=== PATIENT | male | born 1950 | race Caucasian/White ===

== ENCOUNTER → 2016-06-25 | Outpatient (CLI) | payer OTHER ==
[~2016-06-25] MED LIST: CEPH500C PO; SERT25TA PO; [UNRECOGNIZED DRUG - CODE] PO
[2016-06-25 11:26] LABS: HEMATOCRIT 47.4 % (42-52); MEAN CELL VOLUME 84.6 fL (80-100); MEAN CORPUSCULAR HEMOGLOBIN 29.5 pg (25-34); MEAN CORPUSCULAR HGB CONC 34.8 g/dl (32-36); MEAN PLATELET VOLUME 9.1 fL (7.4-10.4); PLATELET COUNT 228 K/uL (130-400); WHITE BLOOD COUNT 7.07 K/uL (4.8-10.8)
[2016-06-25 11:30] LABS: ESTIMATED AVERAGE GLUCOSE 108 mg/dl; HA1C FLAG Normal (Normal)
[2016-06-25 12:21] LABS: ALT/SGPT 74 U/L (12-78); AST/SGOT 40 U/L (15-37); BLOOD UREA NITROGEN 14 mg/dl (7-18); BUN/CREATININE RATIO 12.4 (10-20); CALCIUM 8.8 mg/dl (8.5-10.1); CARBON DIOXIDE 27 mmol/L (21-32); CHLORIDE 107 mmol/L (98-107); GLUCOSE 114 mg/dl (70-99); HDL CHOLESTEROL 35 mg/dl; POTASSIUM 3.2 mmol/L (3.5-5.1); SODIUM 144 mmol/L (136-145); TRIGLYCERIDES 242 mg/dl (0-150); VERY LOW DENSITY LIPOPROT CALC 48 mg/dl
[2016-06-25 12:30] LABS: ALKALINE PHOSPHATASE 115 U/L (45-117); CHOLESTEROL 242 mg/dl (0-200); CHOLESTEROL/HDL RATIO 6.9; LDL CHOLESTEROL CALCULATED 159 mg/dl; PHOSPHORUS 2.4 mg/dl (2.5-4.9); URIC ACID 5.1 mg/dl (2.6-7.2)
== END | disposition home or self-care (01) ==
LOC: C.LABBC 09:02
PROVIDERS: ATTEND Family Medicine
DX: R73.09 Other abnormal glucose (principal)

== ENCOUNTER → 2016-10-11 | Outpatient (CLI) | payer OTHER ==
[2016-10-11 11:49] LABS: BLOOD UREA NITROGEN 16 mg/dl (7-18); BUN/CREATININE RATIO 13.7 (10-20); CARBON DIOXIDE 27 mmol/L (21-32); CHLORIDE 108 mmol/L (98-107); GLUCOSE 112 mg/dl (70-99); MAGNESIUM 2.4 mg/dl (1.8-2.4); POTASSIUM 3.8 mmol/L (3.5-5.1); SODIUM 143 mmol/L (136-145)
[2016-10-13 10:16] LABS: 18KDIGG BAND NONREACTIVE (NONREACTIVE); 23KDIGG BAND NONREACTIVE (NONREACTIVE); 23KDIGM BAND REACTIVE (NONREACTIVE); 28KDIGG BAND NONREACTIVE (NONREACTIVE); 30KDIGG BAND NONREACTIVE (NONREACTIVE); 39KDIGG BAND NONREACTIVE (NONREACTIVE); 39KDIGM BAND NONREACTIVE (NONREACTIVE); 41KDIGG BAND REACTIVE (NONREACTIVE); 41KDIGM BAND NONREACTIVE (NONREACTIVE); 45KDIGG BAND NONREACTIVE (NONREACTIVE); 58KDIGG BAND NONREACTIVE (NONREACTIVE); 66KDIGG BAND REACTIVE (NONREACTIVE); 93KDIGG BAND NONREACTIVE (NONREACTIVE)
--- NOTE | 2016-10-13 14:00 | CODING QUERY NO DIAGNOSIS ---
TREATMENT RENDERED WITHOUT A DIAGNOSIS To promote full compliance with coding requirements relating to patient care, physician participation is requested in all cases of closing specialist uncertainty. Please assist us with providing a diagnosis/symptom for the test(s) below: A diagnosis/symptom was not documented on your Order. A valid diagnosis/symptom is required to bill all insurances. Please remember that we are unable to code a diagnosis of rule out, probable, possible, questionable, or suspected. DATE OF SERVICE: 10/11/16 Tests that require a diagnosis: * BASIC METABOLIC PROFILE DIAGNOSIS: * LYME WESTERN BLOT DIAGNOSIS: * MAGNESIUM DIAGNOSIS: Provider Signature: Date: Thank you Samantha Wagoner [facility] [employer] Once completed, please kindly fax back to [phone] For questions please call [phone]
== END | disposition home or self-care (01) ==
LOC: C.LABBC 08:41
PROVIDERS: ATTEND Family Medicine
DX: R53.83 Other fatigue (principal)

== ENCOUNTER 2017-01-31 19:33 | Emergency (ER) | payer OTHER ==
[~2017-01-31] VITALS: Ht 172.7 cm; Wt 97.5 kg
[2017-01-31 19:37] VITALS: Ht 172.7 cm; Wt 97.5 kg
[2017-01-31] MEDS ORDERED: ONDANSETRON INJ 2 MG/ML 2 ML VIAL IV STA (19:52)
[2017-01-31 20:09] LABS: BASO % 0.2 %; BASO ABS # 0.02 K/uL (0-0.2); COMPLETE YES; EOS % 1.3 %; HEMATOCRIT 46.9 % (42-52); IG% 0.2 %; LYMPH % 32.3 %; LYMPH ABS # 2.94 K/uL (1.2-3.4); MEAN CELL VOLUME 87.3 fL (80-100); MEAN CORPUSCULAR HEMOGLOBIN 29.8 pg (25-34); MEAN CORPUSCULAR HGB CONC 34.1 g/dl (32-36); MEAN PLATELET VOLUME 8.9 fL (7.4-10.4); MONO % 6.7 %; NEUT % 59.3 %; PLATELET COUNT 238 K/uL (130-400); RED BLOOD COUNT 5.37 M/uL (4.7-6.1); WHITE BLOOD COUNT 9.09 K/uL (4.8-10.8)
[2017-01-31 20:56] LABS: ALKALINE PHOSPHATASE 132 U/L (45-117); ALT/SGPT 44 U/L (12-78); BLOOD UREA NITROGEN 22 mg/dl (7-18); BUN/CREATININE RATIO 15.4 (10-20); CARBON DIOXIDE 25 mmol/L (21-32); CHLORIDE 108 mmol/L (98-107); GLUCOSE 103 mg/dl (70-99); SODIUM 141 mmol/L (136-145)
--- NOTE | 2017-01-31 21:01 | DIAGNOSTIC IMAGING REPORT ---
ABDOMEN 2VIEW W/PA CHEST RTN CLINICAL HISTORY: Abdominal pain COMPARISON STUDY: 11/09/2005 FINDINGS: The erect chest reveals no evidence of free air. There is no evidence of focal pulmonary consolidation.] Erect and supine views of the abdomen reveal no abnormally dilated loops of large or small bowel. There are no transition zone to indicate bowel obstruction. IMPRESSION: No evidence of bowel obstruction. No evidence of free air. Electronically signed by: Kwadwo Duque M.D. 01/31/2017 8:59 PM Dictated Date/Time: 01/31/2017 8:58 PM
[2017-01-31 21:08] LABS: MANUAL MICROSCOPIC REQUIRED? NO; REVIEW REQ? NO; URINE APPEARANCE CLOUDY (CLEAR); URINE BILIRUBIN NEG (NEG); URINE COLOR DK YELLOW; URINE EPITHELIAL CELL AUTO 0-5 /lpf (0-5); URINE NITRITE NEG (NEG); URINE SPECIFIC GRAVITY 1.028 (1.000-1.030); UROBILINOGEN NEG (NEG)
--- NOTE | 2017-01-31 21:52 | EMERGENCY ROOM VISIT NOTE ---
History Report prepared by Solo: Rufus Allen Under the Supervision of: Dr. Shelton Chua M.D. First contact with patient: 19:39 Chief Complaint: NAUSEA Stated Complaint: NAUSEA, STOMACH PROBS Nursing Triage Summary: pt reports I have a hx of IBS and I am not feeling better so I would like checked out " I have a little nausea , and feel bloated , maybe some burning" History of Present Illness The patient is a 66 year old male who presents to the Emergency Room with complaints of intermittent upper abdominal discomfort that started 10 days ago. He rates his pain as a 1/10 in severity and states that the discomfort is in his epigastric region radiating throughout his abdomen. The patient states that eating and at the end of the day when his relaxed is when his symptoms are relieved. He states that his symptoms are worsened with stress. The patient states that ten days ago he started to notice that he had a "full feeling", abdominal bloating, and increased gas. He reports that he has only Pepto Bismol and one antacid for his symptoms. The patient states that he has had loose stools lately, but denies any diarrhea. He states that he is going to visit [facility] soon and is concerned that this discomfort may worsen while he is visiting. The patient denies any history of heart disease. He admits that he has had a history of chronic IBS for a long time, which he admits is worsened with spicy foods. The patient denies any vomiting, black or bloody stools, discolored stools, fever, dysuria, unintentional weight loss, chest pain, shortness of breath, eating anything abnormal, and eating more fatty foods. Source of History: patient Onset: ten days ago Position: abdomen Symptom Intensity: 1/10 Quality: other (bloating) Timing: intermittent Modifying Factors (Worsening): other (stress) Modifying Factors (Relieving): eating, other (relaxation) Associated Symptoms: No fevers, No chest pain, No SOB, No nausea, No vomiting, No abdominal pain, No melena, No hematochezia, No diarrhea, No urinary symptoms Review of Systems See HPI for pertinent positives & negatives. A total of 10 systems reviewed and were otherwise negative. Past Medical & Surgical Medical Problems: (1) Hypertension (2) IBS (irritable bowel syndrome) Surgical Problems: (1) H/O hernia repair Family History FHx: respiratory disease Heart disease Social History Smoking Status: Never Smoker Smokeless Tobacco Use: No Alcohol Use: none Drug Use: none Marital Status: Housing Status: lives with significant other Occupation Status: employed Current/Historical Medications Scheduled Cephalexin Monohydrate (Keflex), 500 MG PO QID Sertraline (Zoloft), 25 MG PO DAILY Miscellaneous Medications Enalapril/Hctz (Vaseretic 5MG/12.5MG *), 1 TAB PO Allergies Coded Allergies: No Known Allergies (Unverified Allergy, Mild, 02/12/08) Physical Exam Vital Signs Date Time Temp Pulse Resp B/P (MAP) Pulse Ox O2 Delivery O2 Flow Rate FiO2 01/31/17 20:20 72 01/31/17 19:37 36.7 85 18 156/86 98 Room Air Physical Exam Constitutional: Vital signs reviewed. Eyes: Pupils are equal round reactive to light. Conjunctiva are noninjected. ENT: Pharynx is clear without erythema or exudate. Mucous membranes are moist. Neck supple without meningeal signs. Respiratory: Clear to auscultation bilaterally. Breath sounds are equal bilaterally. Cardiovascular: Regular rate and rhythm. No rubs or gallops. GI: Soft, nondistended, mild epigastric tenderness. No guarding. No Rivers's sign. Bowel sounds are present. Musculoskeletal: No peripheral edema. No lower extremity tenderness. No CVA tenderness. Integumentary: No cyanosis. Neurological: The patient is awake and alert. No focal deficits. Psychiatric: Normal affect. Medical Decision & Procedures ER Provider Diagnostic Interpretation: X-ray results as stated below per interpretation by me and the radiologist: ABDOMEN 2VIEW W/PA CHEST RTN CLINICAL HISTORY: Abdominal pain COMPARISON STUDY: 11/09/2005 FINDINGS: The erect chest reveals no evidence of free air. There is no evidence of focal pulmonary consolidation.] Erect and supine views of the abdomen reveal no abnormally dilated loops of large or small bowel. There are no transition zone to indicate bowel obstruction. IMPRESSION: No evidence of bowel obstruction. No evidence of free air. Electronically signed by: Kwadwo Duque M.D. 01/31/2017 8:59 PM Dictated Date/Time: 01/31/2017 8:58 PM Laboratory Results 01/31/17 20:00 Red Blood Count 5.37, Mean Corpuscular Volume 87.3, Mean Corpuscular Hemoglobin 29.8, Mean Corpuscular Hemoglobin Concent 34.1, Mean Platelet Volume 8.9, Neutrophils (%) (Auto) 59.3, Lymphocytes (%) (Auto) 32.3, Monocytes (%) (Auto) 6.7, Eosinophils (%) (Auto) 1.3, Basophils (%) (Auto) 0.2, Neutrophils # (Auto) 5.38, Lymphocytes # (Auto) 2.94, Monocytes # (Auto) 0.61, Eosinophils # (Auto) 0.12, Basophils # (Auto) 0.02 01/31/17 20:00 Test 01/31/17 20:00 01/31/17 20:05 White Blood Count 9.09 K/uL (4.8-10.8) Red Blood Count 5.37 M/uL (4.7-6.1) Hemoglobin 16.0 g/dL (14.0-18.0) Hematocrit 46.9 % (42-52) Mean Corpuscular Volume 87.3 fL (80-100) Mean Corpuscular Hemoglobin 29.8 pg (25-34) Mean Corpuscular Hemoglobin Concent 34.1 g/dl (32-36) Platelet Count 238 K/uL (130-400) Mean Platelet Volume 8.9 fL (7.4-10.4) Neutrophils (%) (Auto) 59.3 % Lymphocytes (%) (Auto) 32.3 % Monocytes (%) (Auto) 6.7 % Eosinophils (%) (Auto) 1.3 % Basophils (%) (Auto) 0.2 % Neutrophils # (Auto) 5.38 K/uL (1.4-6.5) Lymphocytes # (Auto) 2.94 K/uL (1.2-3.4) Monocytes # (Auto) 0.61 K/uL (0.11-0.59) Eosinophils # (Auto) 0.12 K/uL (0-0.5) Basophils # (Auto) 0.02 K/uL (0-0.2) RDW Standard Deviation 43.3 fL (36.4-46.3) RDW Coefficient of Variation 13.6 % (11.5-14.5) Immature Granulocyte % (Auto) 0.2 % Immature Granulocyte # (Auto) 0.02 K/uL (0.00-0.02) Anion Gap 8.0 mmol/L (3-11) Est Creatinine Clear Calc Drug Dose 58.8 ml/min Estimated GFR () 60.3 Estimated GFR (Non- 52.0 BUN/Creatinine Ratio 15.4 (10-20) Calcium Level 9.0 mg/dl (8.5-10.1) Total Bilirubin 0.5 mg/dl (0.2-1) Direct Bilirubin mg/dl (0-0.2) Aspartate Amino Transf (AST/SGOT) U/L (15-37) Alanine Aminotransferase (ALT/SGPT) 44 U/L (12-78) Alkaline Phosphatase 132 U/L (45-117) Total Protein 8.0 gm/dl (6.4-8.2) Albumin 3.8 gm/dl (3.4-5.0) Lipase 213 U/L (73-393) Urine Color DK YELLOW Urine Appearance CLOUDY (CLEAR) Urine pH 5.0 (4.5-7.5) Urine Specific [place] 1.028 (1.000-1.030) Urine Protein NEG (NEG) Urine Glucose (UA) NEG (NEG) Urine Ketones TRACE (NEG) Urine Occult Blood 2+ (NEG) Urine Nitrite NEG (NEG) Urine Bilirubin NEG (NEG) Urine Urobilinogen NEG (NEG) Urine Leukocyte Esterase NEG (NEG) Urine WBC (Auto) 1-5 /hpf (0-5) Urine RBC (Auto) 0-4 /hpf (0-4) Urine Hyaline Casts (Auto) 0 /lpf (0-5) Urine Epithelial Cells (Auto) 0-5 /lpf (0-5) Urine Bacteria (Auto) NEG (NEG) Laboratory results as reviewed by me. ECG Indication: abdominal pain Rate (beats per minute): 85 Rhythm: normal sinus Findings: no acute ischemic change, no ectopy Comparison ECG Date: no prior available ED Course 1942: The patient was evaluated in room C04. A complete history and physical exam was performed. 1951: Zofran Injection 4 mg IV. 2133: Upon reevaluation, the patient appeared to have improvement of his symptoms. I discussed tonight's findings with the patient. He verbalized agreement of the treatment plan. The patient was discharged home. Medical Decision This is a 66-year-old male who presents with abdominal pain. Differential diagnosis includes peptic ulcer disease, gastritis, pancreatitis, gallbladder disease, irritable bowel syndrome, cardiac. I did perform a limited focused review of portions of the patient's old chart on the electronic medical record. The patient has had no recent pertinent visits to this hospital. I did evaluate the patient as noted above. The patient has a history of irritable bowel syndrome. He has been having some abdominal discomfort the past 10 days. He describes it as epigastric and better with food. He also states is worse when he is stressed and better when he is relaxed. He presents today because he is going on a trip to [facility] and wanted to be checked out. On exam he has no significant tenderness other than some mild epigastric tenderness. IV access was established. I did order and personally review the patient's 12-lead EKG and urinalysis as described above. I did order and review the patient's blood work as noted in the electronic medical record. LFTs are unremarkable. Lipase is negative. His white blood cell count is not elevated. I did discuss the test results with the patient. I did recommend close follow up with his doctor. He was advised to try a course of outpatient Pepcid or Zantac. He was given return instructions as outlined below. Medication Reconcilliation Current Medication List: was personally reviewed by me Blood Pressure Screening Patient's blood pressure: Elevated blood pressure Blood pressure disposition: Referred to PCP Impression Primary Impression: Epigastric abdominal pain Scribe Attestation The scribe's documentation has been prepared under my direct and personally reviewed by me in its entirety. I confirm that the note above accurately reflects all work, treatment, procedures, and medical decision making performed by me. Departure Information Dispostion Home / Self-Care Referrals Kai William M.D. (PCP) Forms HOME CARE DOCUMENTATION FORM, IMPORTANT VISIT INFORMATION Patient Instructions ED Abdominal Pain Unkn Cause Male, My [facility] Additional Instructions You have been examined and treated today on an emergency basis only. This is not a substitute for, or an effort to provide, complete comprehensive medical care. It is impossible to recognize and treat all injuries or illnesses in a single emergency department visit. It is therefore important that you follow up closely with your physician. Call as soon as possible for an appointment. Return for worsening symptoms or if you develop fever, vomiting, black or tarry stools, blood in your stools, urinary symptoms or any other concerning symptoms.
[2017-01-31 22:13] VITALS: BP 121/73; PULSE 75; TEMP 36.7; O2SAT 98
== END 2017-01-31 22:00 | disposition home or self-care (01) ==
LOC: C.EDB 19:34 → C.EDC 22:00
DX: R10.13 Epigastric pain (principal); I10 Essential (primary) hypertension; K58.9 Irritable bowel syndrome, unspecified; Z79.899 Other long term (current) drug therapy; Z82.49 Family history of ischemic heart disease and other diseases of the circulatory system

== ENCOUNTER → 2017-06-24 | Outpatient (CLI) | payer OTHER ==
[2017-06-24 13:51] LABS: BASO % 0.3 %; BASO ABS # 0.02 K/uL (0-0.2); EOS % 1.6 %; HEMATOCRIT 45.9 % (42-52); HEMOGLOBIN 15.8 g/dL (14.0-18.0); IG# 0.02 K/uL (0.00-0.02); LYMPH % 28.3 %; LYMPH ABS # 1.72 K/uL (1.2-3.4); MEAN CELL VOLUME 86.6 fL (80-100); MEAN CORPUSCULAR HEMOGLOBIN 29.8 pg (25-34); MEAN CORPUSCULAR HGB CONC 34.4 g/dl (32-36); MEAN PLATELET VOLUME 9.4 fL (7.4-10.4); MONO % 6.9 %; MONO ABS # 0.42 K/uL (0.11-0.59); NEUT % 62.6 %; PLATELET COUNT 223 K/uL (130-400); RED CELL DISTRIBUTION WIDTH CV 13.8 % (11.5-14.5); RED CELL DISTRIBUTION WIDTH SD 43.3 fL (36.4-46.3); WHITE BLOOD COUNT 6.08 K/uL (4.8-10.8)
[2017-06-24 15:25] LABS: ALBUMIN 3.8 gm/dl (3.4-5.0); ALT/SGPT 50 U/L (12-78); AST/SGOT 27 U/L (15-37); BLOOD UREA NITROGEN 18 mg/dl (7-18); CALCIUM 8.9 mg/dl (8.5-10.1); CARBON DIOXIDE 29 mmol/L (21-32); CHOLESTEROL 215 mg/dl (0-200); CREATININE 1.07 mg/dl (0.60-1.40); GLUCOSE 107 mg/dl (70-99); POTASSIUM 3.5 mmol/L (3.5-5.1); SODIUM 140 mmol/L (136-145); TRANSFERRIN 282 mg/dl (200-360); URIC ACID 6.6 mg/dl (2.6-7.2)
[2017-06-24 15:33] LABS: ALKALINE PHOSPHATASE 134 U/L (45-117); LDL CHOLESTEROL CALCULATED 136 mg/dl; TOTAL PROTEIN 8.1 gm/dl (6.4-8.2)
[2017-06-25 07:57] LABS: HEMOGLOBIN A1C 5.4 % (4.5-5.6)
== END | disposition home or self-care (01) ==
LOC: C.LABBC 10:16
PROVIDERS: ATTEND Family Medicine
DX: R73.09 Other abnormal glucose (principal); E55.9 Vitamin D deficiency, unspecified; D51.9 Vitamin B12 deficiency anemia, unspecified; E78.9 Disorder of lipoprotein metabolism, unspecified; R53.83 Other fatigue

== ENCOUNTER 2021-04-16 08:52 | Inpatient (IN) ==
[2021-04-16] MEDS ORDERED: dilTIAZem HCl 5 MG/ML 5 ML VIAL IV STA (09:23)
[2021-04-16] MEDS ORDERED: STAT IV Infusion **Titration per Protocol STA (09:23)
[2021-04-16] MEDS ORDERED: Heparin IV Adult Wt-Based Standard WITH Bolus Protocol STA (09:23)
[2021-04-16] MEDS ORDERED: HEPARIN SOD (PORCINE) 1000 UNIT/ML IV ONE (09:39)
[2021-04-16 09:42] LABS: Basophils # (auto) 0.02 K/uL (0-0.2); Basophils % (auto) 0.2 %; Eosinophils # (auto) 0.06 K/uL (0-0.5); Eosinophils % (auto) 0.5 %; Hematocrit (blood only) 49.9 % (42-52); Hemoglobin 17.1 g/dL (14.0-18.0); Immature Granulocytes # (auto) 0.05 K/uL (0.00-0.02); Immature Granulocytes % (auto) 0.4 %; Lymphocytes # (auto) 2.93 K/uL (1.2-3.4); Lymphocytes % (auto) 24.3 %; Mean Corpuscular Hemoglobin 30.5 pg (25-34); Mean Corpuscular Hgb Conc 34.3 g/dL (32-36); Mean Corpuscular Volume 89.1 fL (80-100); Mean Platelet Volume 8.9 fL (7.4-10.4); Monocytes # (auto) 0.91 K/uL (0.11-0.59); Monocytes % (auto) 7.5 %; Neutrophils % (auto) 67.1 %; Platelet Count 270 K/uL (130-400); RDW Coefficient of Variation 13.8 % (11.5-14.5); RDW Standard Deviation 44.8 fL (36.4-46.3); White Blood Count 12.07 K/uL (4.8-10.8)
[2021-04-16] MEDS: dilTIAZem HCL 125 MG in DEXTROSE 5% 100 ML IV SCH (09:53)
--- NOTE | 2021-04-16 09:53 | Emergency Department Note ---
Impression & Plan Atrial fibrillation with rapid ventricular response ED Provider Note INFORMANT: Patient ED PROVIDER(S): Cm De Leon MD CHIEF COMPLAINT: Palpitations PLAN: Disposition: Admitted Condition: Good Outpatient prescription management: none Referral: None MEDICAL DECISION MAKING: Patient presented because of palpitations. His ECG showed atrial fibrillation with rapid ventricular response. This is new onset for the patient. He believes it started sometime yesterday evening. He notes minimal symptoms of just the palpitations and when he took his heart rate it was fast. He has no history of the same. He had an IV established. Blood work was obtained. Cardizem bolus and drip was initiated. Patient was prepped for heparin drip. Chest x-ray was unremarkable.[] Triage Nursing notes reviewed and agree them. Vital Signs: reviewed and remarkable for tachycardia and hypertension Differential diagnosis: Premature contractions, electrolyte abnormality, cardiac dysrhythmia, thyroid dysfunction, pulmonary embolism, infection, gastrointestinal, as well as other pathologies. Diagnostics interpreted by me: ECG: Twelve-lead ECG reveals atrial fibrillation with rapid ventricular response. Inferior ST depression mildly. No ST elevation. No PVCs. Cardiac Monitoring: Cardiac monitoring ordered by me: The patient was placed on continuous cardiac monitoring and observed. It revealed atrial fibrillation with rapid ventricular response at 155 bpm. Imaging studies: Chest x-ray. Findings: A chest x-ray was performed and revealed no pneumothorax, effusion, infiltrate, pulmonary edema, free air under the diaphragm, or wide mediastinum. Impression: No acute disease. HPI: The patient is a 70 year old male who presents to the Emergency Room with complaints of palpitations. This started last night and is persistent. The patient also notes the following associated symptoms, none. The patient has taken no medication for relieving factors. Current pain is rated as 0/10. Patient has no cardiac history. Pt denies LOC, headache, fevers, chills, diaphoresis, visual changes, neck pain, chest pain, breathing difficulties, nausea, vomiting, abdominal pain, back pain, melena, hematochezia, urinary symptoms, numbness, weakness, lymphadenopathy, rash, or other complaints. ROS: See above HPI for pertinent positives & negatives. A total of 10 systems reviewed and were otherwise negative. PAST MEDICAL HISTORY:See Below , hypertension PAST SURGICAL HISTORY:See Below, FAMILY HISTORY:See Below SOCIAL HISTORY:See Below, non-smoker HOME MEDICATIONS:See Below ALLERGIES:See Below VITALS:See Below PHYSICAL EXAMINATION: GENERAL: Awake, alert, well-appearing, in no distress HENT: Normocephalic, atraumatic. Oropharynx unremarkable. EYES: Normal conjunctiva. Sclera non-icteric. NECK: Inspection normal. Non-tender. Supple. No nuchal rigidity. FROM. No masses. RESPIRATORY: Clear to auscultation. No wheezes. No rales. Normal respiratory effort. CARDIAC: Tachycardic rate. Irregular rhythm. No murmurs. No rubs. Extremities warm and well perfused. Pulses equal. No JVD. GI: Soft, non-distended. No tenderness to palpation. No rebound or guarding. No masses. RECTAL: Deferred. MUSCULOSKELETAL: Atraumatic. Chest examination reveals no tenderness. The back is symmetrical on inspection without obvious abnormality. There is no CVA ten derness to palpation. No joint edema. LOWER EXTREMITIES: Calves are equal size bilaterally and non-tender. No edema. No discoloration. NEURO: Normal sensorium. No sensory or motor deficits noted. SKIN: No rash or jaundice noted. CRITICAL CARE: I have personally spent greater than 35 minutes of critical care time in the direct management of this patient. This includes bedside care, interpretation of diagnostic studies, and testing, discussion with consultants, patient, and other required patient management activities. These minutes are in excess of all separately billable procedures. Cm De Leon MD Past Med/Surg History Medical History (Updated 04/16/21 @ 13:13 by Cm De Leon MD) Hypertension Social History Smoking Status: Never smoker Feels Safe at Home: Yes Allergies Allergies Allergy/AdvReac Type Severity Reaction Status Date / Time No Known Allergies Allergy Mild Verified 04/08/21 10:43 Home Meds Home Medications Medication Instructions Recorded Confirmed amlodipine 5 mg tablet 5 mg PO DAILY 04/08/21 04/16/21 lisinopril 20 mg tablet 20 mg PO DAILY 04/08/21 04/16/21 L.rhamn 1 cap PO DAILY PRN 04/16/21 04/16/21 A-191-L.acid-B.breve-B.longum 20 billion cell sprinkle capsule (Probiotic) cholecalciferol (vitamin D3) 10 10 mcg PO DAILY 04/16/21 04/16/21 mcg (400 unit) tablet (Vitamin D3) wm-4-vlt-epa-fish oil-vit D3 300 1 cap PO DAILY 04/16/21 04/16/21 mg-1,000 mg-1,000 unit capsule (Fish Oil-Vit D3) sertraline 50 mg tablet 50 mg PO HS PRN 04/16/21 04/16/21 tumeric 100 mg-liz 150 mg-olive 1 cap PO DAILY 04/16/21 04/16/21 50 mg-oreg 150 mg-caprylate capsule Results & Data (ED) Vital Signs Vital Signs - 24 hr 04/16/21 09:12 04/16/21 09:13 04/16/21 09:20 Temperature 37.1 C Temperature Source Oral Pulse Rate 135 H 155 H 149 H Pulse Rate from SpO2 Sensor 127 H 154 H Pulse Rhythm Irregular Pulse Strength Normal Respiratory Rate 22 20 18 Respiratory Effort / Characteristics Non-Labored Respiratory Depth Normal Blood Pressure 166/100 H Blood Pressure Mean 122 Blood Pressure Position Sitting Pulse Oximetry 97 98 97 Oxygen Delivery Method Room Air Sepsis Recent Fever Within 48 Hours No Sepsis New/Unexplained Change in Mental Status No Sepsis Action Taken by Nursing No Action Required 04/16/21 09:30 04/16/21 09:40 04/16/21 09:50 Temperature Temperature Source Pulse Rate 134 H 126 H 122 H Pulse Rate from SpO2 Sensor 121 H 124 H 118 H Pulse Rhythm Pulse Strength Respiratory Rate 19 27 H 22 Respiratory Effort / Characteristics Respiratory Depth Blood Pressure Blood Pressure Mean Blood Pressure Position Pulse Oximetry 98 95 95 Oxygen Delivery Method Sepsis Recent Fever Within 48 Hours Sepsis New/Unexplained Change in Mental Status Sepsis Action Taken by Nursing 04/16/21 10:00 04/16/21 10:10 04/16/21 10:20 Temperature Temperature Source Pulse Rate 120 H 104 H 133 H Pulse Rate from SpO2 Sensor 119 H 103 H 135 H Pulse Rhythm Pulse Strength Respiratory Rate 12 11 L 19 Respiratory Effort / Characteristics Respiratory Depth Blood Pressure Blood Pressure Mean Blood Pressure Position Pulse Oximetry 93 93 94 Oxygen Delivery Method Sepsis Recent Fever Within 48 Hours Sepsis New/Unexplained Change in Mental Status Sepsis Action Taken by Nursing 04/16/21 10:30 04/16/21 10:40 04/16/21 10:50 Temperature Temperature Source Pulse Rate 114 H 105 H 108 H Pulse Rate from SpO2 Sensor 109 H 106 H 108 H Pulse Rhythm Pulse Strength Respiratory Rate 15 10 L 12 Respiratory Effort / Characteristics Respiratory Depth Blood Pressure 150/94 H Blood Pressure Mean 112 Blood Pressure Position Pulse Oximetry 94 92 93 Oxygen Delivery Method Sepsis Recent Fever Within 48 Hours Sepsis New/Unexplained Change in Mental Status Sepsis Action Taken by Nursing 04/16/21 11:00 04/16/21 11:10 04/16/21 11:20 Temperature Temperature Source Pulse Rate 108 H 114 H 117 H Pulse Rate from SpO2 Sensor 111 H 101 H Pulse Rhythm Pulse Strength Respiratory Rate 21 14 11 L Respiratory Effort / Characteristics Respiratory Depth Blood Pressure Blood Pressure Mean Blood Pressure Position Pulse Oximetry 93 94 Oxygen Delivery Method Sepsis Recent Fever Within 48 Hours Sepsis New/Unexplained Change in Mental Status Sepsis Action Taken by Nursing 04/16/21 11:30 04/16/21 11:40 04/16/21 11:50 Temperature Temperature Source Pulse Rate 115 H 116 H 118 H Pulse Rate from SpO2 Sensor 114 H 88 107 H Pulse Rhythm Pulse Strength Respiratory Rate 12 15 32 H Respiratory Effort / Characteristics Respiratory Depth Blood Pressure 124/91 Blood Pressure Mean 102 Blood Pressure Position Pulse Oximetry 95 94 96 Oxygen Delivery Method Sepsis Recent Fever Within 48 Hours Sepsis New/Unexplained Change in Mental Status Sepsis Action Taken by Nursing 04/16/21 12:00 04/16/21 12:10 Temperature Temperature Source Pulse Rate 104 H 109 H Pulse Rate from SpO2 Sensor 100 H 109 H Pulse Rhythm Pulse Strength Respiratory Rate 29 H 11 L Respiratory Effort / Characteristics Respiratory Depth Blood Pressure Blood Pressure Mean Blood Pressure Position Pulse Oximetry 96 93 Oxygen Delivery Method Sepsis Recent Fever Within 48 Hours Sepsis New/Unexplained Change in Mental Status Sepsis Action Taken by Nursing Laboratory Data Result diagrams: 04/16/21 09:18 04/16/21 09:18 Lab Results 04/16/21 04/16/21 04/16/21 Range/Units 09:18 09:18 09:18 WBC 12.07 H (4.8-10.8) K/uL RBC 5.60 (4.7-6.1) M/uL Hgb 17.1 (14.0-18.0) g/dL Hct 49.9 (42-52) % MCV 89.1 (80-100) fL MCH 30.5 (25-34) pg MCHC 34.3 (32-36) g/dL RDW Std Deviation 44.8 (36.4-46.3) fL RDW Coeff of Melvin 13.8 (11.5-14.5) % Plt Count 270 (130-400) K/uL MPV 8.9 (7.4-10.4) fL Immature Gran % (Auto) 0.4 % Neut % (Auto) 67.1 % Lymph % (Auto) 24.3 % Mitchell % (Auto) 7.5 % Eos % (Auto) 0.5 % Baso % (Auto) 0.2 % Neut # (Auto) 8.10 H (1.4-6.5) K/uL Lymph # (Auto) 2.93 (1.2-3.4) K/uL Mitchell # (Auto) 0.91 H (0.11-0.59) K/uL Eos # (Auto) 0.06 (0-0.5) K/uL Baso # (Auto) 0.02 (0-0.2) K/uL Immature Gran # (Auto) 0.05 H (0.00-0.02) K/uL PT 10.0 (9.0-12.0) Seconds INR 1.0 (0.9-1.1) APTT 27.3 (21.0-31.0) Seconds PTT Ratio 1.0 Sodium 140 (136-145) mmol/L Potassium 2.9 L (3.5-5.1) mmol/L Chloride 106 (98-107) mmol/L Carbon Dioxide 25 (21-32) mmol/L Anion Gap 9.0 (3-11) BUN 21 H (7-18) mg/dl Creatinine 1.10 (0.6-1.4) mg/dl Est Cr Clr Drug Dosing 69.8 ml/min Est GFR ( Amer) 78.4 ml/min Est GFR (Non-Af Amer) 67.7 ml/min BUN/Creatinine Ratio 19.1 (10-20) Glucose 131 H (70-99) mg/dl Calcium 9.2 (8.5-10.1) mg/dl Magnesium 2.3 (1.8-2.4) mg/dl Total Bilirubin 0.7 (0.2-1) mg/dl AST 35 (15-37) U/L ALT 63 (12-78) U/L Alkaline Phosphatase 91 (45-117) U/L Troponin I < 0.015 (0-0.045) ng/ml Total Protein 7.9 (6.4-8.2) gm/dl Albumin 3.5 (3.4-5.0) gm/dl Globulin 4.4 H (2.5-4.0) gm/dl Albumin/Globulin Ratio 0.8 L (0.9-2) TSH 2.550 (0.300-4.500) uIu/ml COVID-19 Eval Order SARS-CoV-2 (PCR) (Negative) 04/16/21 04/16/21 Range/Units 09:25 09:25 WBC (4.8-10.8) K/uL RBC (4.7-6.1) M/uL Hgb (14.0-18.0) g/dL Hct (42-52) % MCV (80-100) fL MCH (25-34) pg MCHC (32-36) g/dL RDW Std Deviation (36.4-46.3) fL RDW Coeff of Melvin (11.5-14.5) % Plt Count (130-400) K/uL MPV (7.4-10.4) fL Immature Gran % (Auto) % Neut % (Auto) % Lymph % (Auto) % Mitchell % (Auto) % Eos % (Auto) % Baso % (Auto) % Neut # (Auto) (1.4-6.5) K/uL Lymph # (Auto) (1.2-3.4) K/uL Mitchell # (Auto) (0.11-0.59) K/uL Eos # (Auto) (0-0.5) K/uL Baso # (Auto) (0-0.2) K/uL Immature Gran # (Auto) (0.00-0.02) K/uL PT (9.0-12.0) Seconds INR (0.9-1.1) APTT (21.0-31.0) Seconds PTT Ratio Sodium (136-145) mmol/L Potassium (3.5-5.1) mmol/L Chloride (98-107) mmol/L Carbon Dioxide (21-32) mmol/L Anion Gap (3-11) BUN (7-18) mg/dl Creatinine (0.6-1.4) mg/dl Est Cr Clr Drug Dosing ml/min Est GFR ( Amer) ml/min Est GFR (Non-Af Amer) ml/min BUN/Creatinine Ratio (10-20) Glucose (70-99) mg/dl Calcium (8.5-10.1) mg/dl Magnesium (1.8-2.4) mg/dl Total Bilirubin (0.2-1) mg/dl AST (15-37) U/L ALT (12-78) U/L Alkaline Phosphatase (45-117) U/L Troponin I (0-0.045) ng/ml Total Protein (6.4-8.2) gm/dl Albumin (3.4-5.0) gm/dl Globulin (2.5-4.0) gm/dl Albumin/Globulin Ratio (0.9-2) TSH (0.300-4.500) uIu/ml COVID-19 Eval Order Covid19 at [facility] SARS-CoV-2 (PCR) NEGATIVE (Negative) Administered Medications Diltiazem HCl 125 mg/ Dextrose 125 mls @ 5 mls/hr IV .Q24H [facility]; Protocol Stop: 05/16/21 09:29 Last Admin: 04/16/21 09:53 Dose: 5 mg/hr, 5 mls/hr Documented by: [id number] Cosigned by: [id number] Heparin Sodium/Dextrose (Heparin Sodium/Dextrose) 25,000 units in 500 mls @ 28 mls/hr IV .[id number] [facility]; Protocol Stop: 05/16/21 09:44 Last Admin: 04/16/21 11:10 Dose: 1,400 units/hr, 28 mls/hr Documented by: [id number] Cosigned by: [id number] Discontinued Medications Diltiazem HCl (Diltiazem Hcl 5 Mg/Ml 5 Ml Vial) 10 mg IV NOW STA Stop: 04/16/21 09:24 Last Admin: 04/16/21 09:39 Dose: 10 mg Documented by: [id number] Cosigned by: [id number] Heparin Sodium (Porcine) (Heparin Sod (Porcine) 1000 Unit/Ml) 1 units IV NOW ONE Stop: 04/16/21 09:40 Last Admin: 04/16/21 11:10 Dose: 5,000 units Documented by: [id number] Cosigned by: [id number] Heparin Sodium/Dextrose (Heparin Iv Adult Wt-Based Standard With Bolus Protocol) 1 ea N/A NOW STA; Protocol Stop: 04/16/21 09:24 Last Admin: 04/16/21 11:12 Dose: Not Given Documented by: [id number] Potassium Chloride (K Ankur / Wtr) 10 meq in 100 mls @ 100 mls/hr IV Q1H KRISTA Stop: 04/16/21 12:14 Last Admin: 04/16/21 12:09 Dose: 100 mls/hr Documented by: [id number] Potassium Chloride (Potassium Chloride Crtab 20 Meq Tabcr) 40 meq PO NOW STA Stop: 04/16/21 10:16 Last Admin: 04/16/21 11:13 Dose: 40 meq Documented by: [id number] Discharge Plan Visit Data Chief Complaint: Cardiac Assessment Stated Complaint: IRREGULAR HEART BEAT ED Provider: Cm De Leon Discharge Problem: Atrial fibrillation with rapid ventricular response Forms Stand Alone Forms: [employer] Prescriptions Prescriptions: No Action lisinopril 20 mg tablet 20 mg PO DAILY RF: 0 amlodipine 5 mg tablet 5 mg PO DAILY RF: 0 sertraline 50 mg tablet 50 mg PO HS PRN (Reason: Pain) RF: 0 cholecalciferol (vitamin D3) [Vitamin D3] 10 mcg (400 unit) Tablet 10 mcg PO DAILY RF: 0 ta-3-qzr-epa-fish oil-vit D3 [Fish Oil-Vit D3] 300-1,000-1,000 mg-mg-unit Capsule 1 cap PO DAILY RF: 0 Probiotic 20 billion cell Capsule, Sprinkle 1 cap PO DAILY PRN (Reason: Digestion) RF: 0 tikhcne-pcmw-tfzga-oreg-capryl 100 mg-150 mg- 50 mg-150 mg Capsule 1 cap PO DAILY RF: 0 Referrals Referrals: Kai William MD [Primary Care Provider] -
[2021-04-16 10:06] LABS: Alanine Aminotransferase 63 U/L (12-78); Albumin Level 3.5 gm/dl (3.4-5.0); Aspartate Aminotransferase 35 U/L (15-37); BUN Creatinine Ratio 19.1 (10-20); Blood Urea Nitrogen 21 mg/dl (7-18); Calcium 9.2 mg/dl (8.5-10.1); Carbon Dioxide 25 mmol/L (21-32); Chloride 106 mmol/L (98-107); Creatinine Clr Calc Pharmacy 69.8 ml/min; Est GFR (African American) 78.4 ml/min; Est GFR (Non-African American) 67.7 ml/min; Glucose 131 mg/dl (70-99); Magnesium 2.3 mg/dl (1.8-2.4); Potassium 2.9 mmol/L (3.5-5.1); Sodium 140 mmol/L (136-145)
[2021-04-16] MEDS ORDERED: POTASSIUM CHLORIDE CRTAB 20 MEQ TABCR PO STA (10:15)
[2021-04-16] MEDS ORDERED: Heparin IV Adult Wt-Based Standard WITH Bolus Protocol IV SCH (10:15)
[2021-04-16 10:18] LABS: Albumin Globulin Ratio 0.8 (0.9-2); Alkaline Phosphatase 91 U/L (45-117); Bilirubin,Total 0.7 mg/dl (0.2-1); Globulin 4.4 gm/dl (2.5-4.0); Total Protein 7.9 gm/dl (6.4-8.2); Troponin I < 0.015 ng/ml (0-0.045)
[2021-04-16 10:42] LABS: Partial Thromboplastin Time 27.3 Seconds (21.0-31.0)
[2021-04-16] MEDS: HEPARIN SODIUM/DEXTROSE 25,000 UNITS/500 ML BAG IV SCH (11:10)
[2021-04-16] MEDS: POTASSIUM CHLORIDE / WTR 10 MEQ/100 ML PLCT IV SCH ×2 (12:09→13:42)
--- NOTE | 2021-04-16 13:38 | History & Physical Report ---
Date of Service April 16, 2021 Assessment & Plan (1) Atrial fibrillation with rapid ventricular response: Plan: Raj is a 70yo M who presents with new afib with RVR New Afib with RVR - Continue cardizem gtt - Continue heparin gtt - Pt a DOAC candidate - [id number] 2 Patient with history of atrial arrhythmia previously, reviewed past report appears to be atrial ectopy not A. fib Discussed risk/benefits of rate control and anticoagulation versus rhythm conversion for 1st episode of A. fib likely provoked by hypokalemia. Cardiology consulted, patient known in the past to Dr. Maldonado per patient TTE pending (2) Hypertension: Plan: Continue amlodipine, lisinopril (3) IBS (irritable bowel syndrome): Plan: No acute management indicated (4) Greater trochanteric bursitis of both hips: Plan: No acute management indicated (5) Hypokalemia: Plan: 20 M EQ repletion ordered in ER Magnesium normal Additional repletion ordered BMP in 4 h, and a.m. Plan: DVT prophylaxis: On heparin GTT Diet: Heart healthy Disposition: PCU while on diltiazem drip CODE STATUS: Full code History of Present Illness Primary Care Provider: Kai William MD Raj reports in the past he has had 'minor blip' with rapid heartbeat and irregular pulse. Saw Dr. Maldonado in the past and gave him a heart monitor at the time several years ago, but rhythm spontaneously went back to normal. This episode started last evening 630 and felt his pulse 'weird and irregular.' Did not have palpitations. No sweating, no chest pain, no shortness of breath, no diaphoresis. No fevers, chills, syncope, presyncope. Was anxious about it decided to get evaluated in the morning as he was worrying about. Denies other cardiac hx, no hx of heart attacks. Has seen Dr. Maldonado in the past, would like to be seen by him again if possible. No prior episodes, records reviewed of prior appears has had atrial ectopy without A. fib. [id number] 2. No falls, history of bleeding diathesis. Medical History: Reviewed Medications: Reviewed. Took medicines his AM. Surgical History: Reviewed Allergies: Reviewed. NKDA Social History: No tobacco product product use, rare social alcohol, no recreational drug use Code Status:Full Code Allergies Allergy/AdvReac Type Severity Reaction Status Date / Time No Known Allergies Allergy Mild Verified 04/08/21 10:43 Home Medications Medication Instructions Recorded Confirmed Type amlodipine 5 mg tablet 5 mg PO DAILY 04/08/21 04/16/21 History lisinopril 20 mg tablet 20 mg PO DAILY 04/08/21 04/16/21 History L.rhamn 1 cap PO DAILY PRN 04/16/21 04/16/21 History A-191-L.acid-B.breve-B.longum 20 billion cell sprinkle capsule (Probiotic) cholecalciferol (vitamin D3) 10 10 mcg PO DAILY 04/16/21 04/16/21 History mcg (400 unit) tablet (Vitamin D3) lc-1-ahb-epa-fish oil-vit D3 300 1 cap PO DAILY 04/16/21 04/16/21 History mg-1,000 mg-1,000 unit capsule (Fish Oil-Vit D3) sertraline 50 mg tablet 50 mg PO HS PRN 04/16/21 04/16/21 History tumeric 100 mg-liz 150 mg-olive 1 cap PO DAILY 04/16/21 04/16/21 History 50 mg-oreg 150 mg-caprylate capsule Past Med/Surg History Medical History Hypertension Social History Smoking Status: Never smoker Feels Safe at Home: Yes Review of Systems Review of Systems: Constitutional: Denies fever, chills, malaise, weight change Eyes: Denies double vision, vision change, eye pain ENT: Denies ear pain, sore throat, sinus pain Cardiovascular: Denies Chest pain, chest pressure, palpitations, extremity swelling Respiratory: Denies shortness of breath, cough, sputum production, difficulty breathing Gastrointestinal: Denies abdominal pain, nausea, vomiting, constipation, diarrhea Genitourinary: Denies pain with urination, urinary urgency, urinary frequency Musculoskeletal: Endorses past hip bursitis and chronic knee arthritis, some neck strain but acute pain/change. Integumentary:Denies rash, lesions, bruising Neurological: Denies headache, numbness, tingling, focal weakness Physical Exam Physical Exam: General: A&Ox3. NAD. Cooperative. HEENT: Atraumatic, normocephalic. Pulm: CTAB A&P. -wheezes, -rales, -rhonchi. Symmetrical chest rise. No increase work of breathing. No respiratory distress. Cardiac: Irregularly irregular. Radial pulses intact and symmetrical. Abdominal: Nontender, nondistended, soft. BS present. CRANIAL NERVES: II: Pupils equal and reactive, no relative afferent pupillary defect, no VF cuts III, IV, : EOM intact, no gaze preference or deviation, no nystagmus. V: normal sensation in V1, V2, and V3 segments bilaterally VII: no asymmetry, no nasolabial fold flattening VIII: normal hearing to speech IX, X: normal palatal elevation, no uvular deviation XI: 5/5 head turn and 5/5 shoulder shrug bilaterally XII: midline tongue protrusion MOTOR: RUE: 5/5 talent development consultant strength, finger flexion/extension, interosseus LUE: 5/5 talent development consultant strength, finger flexion/extension, interosseus RLE: 5/5 to, ankle dorsiflexion/plantarflexion LLE: 5/5 to ankle dorsiflexion/plantarflexion Results & Data Results & Data ([facility]) Vital Signs (Past 12 Hours) Vital Signs Temp Pulse Resp BP Pulse Ox 04/16/21 12:10 109 H 11 L 93 04/16/21 12:00 104 H 29 H 96 04/16/21 11:50 118 H 32 H 96 04/16/21 11:40 116 H 15 124/91 94 04/16/21 11:30 115 H 12 95 04/16/21 11:20 117 H 11 L 94 04/16/21 11:10 114 H 14 93 04/16/21 11:00 108 H 21 04/16/21 10:50 108 H 12 150/94 H 93 04/16/21 10:40 105 H 10 L 92 04/16/21 10:30 114 H 15 94 04/16/21 10:20 133 H 19 94 04/16/21 10:10 104 H 11 L 93 04/16/21 10:00 120 H 12 93 04/16/21 09:50 122 H 22 95 04/16/21 09:40 126 H 27 H 95 04/16/21 09:30 134 H 19 98 04/16/21 09:20 149 H 18 97 04/16/21 09:13 37.1 C 155 H 20 166/100 H 98 04/16/21 09:12 135 H 22 97 PG Care Time/CCT Total # of Minutes Spent Total Time Spent with Patient: Total time spent is greater than 50% in coordination of care (as documented) at patient's floor/unit and/or counseling patient: Coding Level of Care Code 41157 Initial Inpt Care Lvl 3 Diagnoses Atrial fibrillation with rapid ventricular response I48.91 Hypertension I10 IBS (irritable bowel syndrome) K58.9 Greater trochanteric bursitis of both hips M70.61; M70.62 Hypokalemia E87.6
[2021-04-16] MEDS ORDERED: SERTRALINE HCL 50 MG TABLET PO PRN (15:56)
[2021-04-16 17:50] LABS: Partial Thromboplastin Ratio 2.2
[2021-04-16 17:51] LABS: Partial Thromboplastin Time 59.1 Seconds (21.0-31.0)
[2021-04-16 17:56] LABS: BUN Creatinine Ratio 15.6 (10-20); Calcium 8.9 mg/dl (8.5-10.1); Est GFR (African American) 78.4 ml/min; Est GFR (Non-African American) 67.7 ml/min; Potassium 3.6 mmol/L (3.5-5.1)
[2021-04-16] MEDS: POTASSIUM CHLORIDE CRTAB 20 MEQ TABCR PO SCH (21:27)
[2021-04-17] MEDS: dilTIAZem HCL 125 MG in DEXTROSE 5% 100 ML IV SCH (04:50)
[2021-04-17] MEDS: HEPARIN SODIUM/DEXTROSE 25,000 UNITS/500 ML BAG IV SCH (04:51)
--- NOTE | 2021-04-17 06:10 | Electrocardiogram Report ---
Test Reason : Blood Pressure : / mmHG Vent. Rate : 138 BPM Atrial Rate : 163 BPM P-R Int : 000 ms QRS Dur : 076 ms QT Int : 264 ms P-R-T Axes : 000 064 -49 degrees QTc Int : 399 ms Atrial fibrillation with rapid ventricular response Marked ST abnormality, possible inferior subendocardial injury Abnormal ECG When compared with ECG of 31-JAN-2017 19:58, Atrial fibrillation has replaced Sinus rhythm Vent. rate has increased BY [address] now depressed in Inferior leads Inverted T waves have replaced nonspecific T wave abnormality in Inferior leads Confirmed by Aren Ford [id number] on 04/17/2021 6:10:34 AM Referred By: Confirmed By:Aren Ford
[2021-04-17 07:33] LABS: Basophils # (auto) 0.02 K/uL (0-0.2); Basophils % (auto) 0.2 %; Eosinophils # (auto) 0.07 K/uL (0-0.5); Eosinophils % (auto) 0.8 %; Hematocrit (blood only) 45.9 % (42-52); Hemoglobin 15.9 g/dL (14.0-18.0); Immature Granulocytes # (auto) 0.02 K/uL (0.00-0.02); Immature Granulocytes % (auto) 0.2 %; Lymphocytes # (auto) 2.25 K/uL (1.2-3.4); Lymphocytes % (auto) 26.1 %; Mean Corpuscular Hemoglobin 30.3 pg (25-34); Mean Corpuscular Hgb Conc 34.6 g/dL (32-36); Mean Corpuscular Volume 87.4 fL (80-100); Mean Platelet Volume 8.8 fL (7.4-10.4); Monocytes # (auto) 0.61 K/uL (0.11-0.59); Monocytes % (auto) 7.1 %; Neutrophils # (auto) 5.66 K/uL (1.4-6.5); Neutrophils % (auto) 65.6 %; Platelet Count 236 K/uL (130-400); RDW Coefficient of Variation 13.8 % (11.5-14.5); RDW Standard Deviation 44.3 fL (36.4-46.3); Red Blood Count 5.25 M/uL (4.7-6.1); White Blood Count 8.63 K/uL (4.8-10.8)
[2021-04-17 08:26] LABS: Partial Thromboplastin Ratio 2.4
[2021-04-17 08:31] LABS: Partial Thromboplastin Time 63.9 Seconds (21.0-31.0)
[2021-04-17] MEDS: POTASSIUM CHLORIDE CRTAB 20 MEQ TABCR PO SCH ×2 (08:41→13:42)
[2021-04-17] MEDS ORDERED: amLODIPine BESYLATE 5 MG TAB PO SCH (09:00)
[2021-04-17] MEDS ORDERED: lisinopril 20 MG TAB PO SCH (09:00)
[2021-04-17 09:10] LABS: BUN Creatinine Ratio 19.9 (10-20); Blood Urea Nitrogen 21 mg/dl (7-18); Calcium 9.2 mg/dl (8.5-10.1); Carbon Dioxide 27 mmol/L (21-32); Chloride 110 mmol/L (98-107); Creatinine Clr Calc Pharmacy 73.6 ml/min; Est GFR (African American) 84.9 ml/min; Est GFR (Non-African American) 73.3 ml/min; Glucose 113 mg/dl (70-99); Potassium 3.6 mmol/L (3.5-5.1); Sodium 142 mmol/L (136-145)
[2021-04-17 09:15] LABS: Troponin I < 0.015 ng/ml (0-0.045)
[2021-04-17] MEDS ORDERED: METOPROLOL TARTRATE 25 MG TAB PO SCH ×2 (10:15→21:00)
--- NOTE | 2021-04-17 12:51 | Cardiology Consultation ---
Date of Consultation April 17, 2021 Assessment & Plan (1) Atrial fibrillation with rapid ventricular response: -ventricular response now better controlled intravenous diltiazem. -would transition to oral metoprolol succinate. -suggest Eliquis 5 mg b.i.d. -hopefully he can be discharged home later today. -I am happy to see him in follow-up. (2) Hypertension: -adequate control on current regimen. (3) Hypercholesterolemia: -consider statin therapy. History of Present Illness Attending Physician: Khris Guillermo MD History of Present Illness Mr. Rodriguez is a 70-year-old male admitted yesterday with atrial fibrillation and a rapid ventricular response. This consultation was ordered to assist in his cardiac management. Of note, the patient is well known to me from the outpatient setting. The patient was in his usual state of health until Tuesday evening at approximately 6:30 p.m.. The patient checked his blood pressure and pulse and noted his pulse to be weird an irregular. The patient experienced no symptoms such as palpitations or exercise intolerance. He was able to sleep that evening without difficulty. The patient awoke on morning and still noted a rapid and irregular pulse. He was able to work outside raking leaves and performing other chores. At no time did he experience exercise intolerance. He continued to denied palpitations. However, he became concerned and therefore, presented to the emergency room for further care. On arrival here, patient was noted be in atrial fibrillation with a rapid ventricular response. He was placed on intravenous heparin and intravenous diltiazem drip and hospitalization was recommended. Currently, patient is resting comfortably in bed without complaints. We have had a long discussion regarding management of atrial fibrillation. Patient agrees to rate control and long-term anticoagulation. Past medical and surgical history 1. Hypertension 2. Hypercholesterolemia 3. Obstructive sleep apnea 4. Gout 5. Anxiety/depression 6. Inguinal hernia repair 7. Irritable bowel syndrome 8. Greater trochanteric bursitis Social history and lives with his No tobacco Rare alcohol Family history Father at age 60 from emphysema Mother at age 80 from emphysema A brother at age 56 from an [place] Review of systems A 10 review systems was negative except that described above. Allergies Allergy/AdvReac Type Severity Reaction Status Date / Time No Known Allergies Allergy Mild Verified 04/08/21 10:43 Home Medications Medication Instructions Recorded Confirmed Type amlodipine 5 mg tablet 5 mg PO DAILY 04/08/21 04/16/21 History lisinopril 20 mg tablet 20 mg PO DAILY 04/08/21 04/16/21 History L.rhamn 1 cap PO DAILY PRN 04/16/21 04/16/21 History A-191-L.acid-B.breve-B.longum 20 billion cell sprinkle capsule (Probiotic) cholecalciferol (vitamin D3) 10 10 mcg PO DAILY 04/16/21 04/16/21 History mcg (400 unit) tablet (Vitamin D3) ra-5-aax-epa-fish oil-vit D3 300 1 cap PO DAILY 04/16/21 04/16/21 History mg-1,000 mg-1,000 unit capsule (Fish Oil-Vit D3) sertraline 50 mg tablet 50 mg PO HS PRN 04/16/21 04/16/21 History tumeric 100 mg-liz 150 mg-olive 1 cap PO DAILY 04/16/21 04/16/21 History 50 mg-oreg 150 mg-caprylate capsule Patient History Medical History Hypertension Family History (Updated 04/16/21 @ 16:34 by Amie Kaufman RN) Other No history of previous surgery Social History Smoking Status: Never smoker Do You Dip or Chew Tobacco: No; Hx Alcohol Use: Yes Alcohol type: beer and wine Hx Substance Use: No Preferred Language: Ecuadorean Communication Ability: Effective Branch Associate Teller Required: No Beliefs That Will Affect Care: None Current Living Situation: Spouse Other Information That Helps Us Care for You: No Feels Safe at Home: Yes Safety Concerns: Feels Safe At This Time Assistive Devices: Glasses Physical Exam Physical Exam: In general is well-developed well-nourished white male in no acute distress. HEENT exam is negative. Neck is supple with full carotid upstrokes. There are no carotid bruits. Jugular venous pressure is flat at 90. There is no thyromegaly. Cardiovascular exam reveals an irregularly irregular rhythm with distant heart sounds. No obvious murmurs. Lungs are clear without rales, rhonchi or wheezes. Abdomen is soft nontender without bruits. Extremities reveal intact radial artery and posterior tibial pulses bilaterally. There is no peripheral edema. Results & Data ([facility]) Vital Signs (Past 12 Hours) Vital Signs Temp Pulse Resp BP Pulse Ox 04/17/21 11:18 36.8 C 89 18 154/96 H 95 04/17/21 08:00 36.3 C L 96 H 18 165/104 H 97 04/17/21 03:29 36.6 C 95 H 18 110/74 95 Laboratory Results CBC notes hemoglobin 15.9, hematocrit 45.9, white count 8.6, and platelet count [id number]. Electrolytes note sodium of 141, potassium 3.6, chloride 109, bicarb 26, BUN 17, creatinine 1.1, glucose of 136. Magnesium level is normal at 2.3. Troponin I levels undetectable less than 0.015. TSH is normal 2.55. Diagnostic Findings EKG on presentation noted atrial fibrillation with a rapid ventricular response. There was an inferior ST abnormality. PG Care Time/CCT Total # of Minutes Spent Total Time Spent with Patient: Total time spent is greater than 50% in coordination of care (as documented) at patient's floor/unit and/or counseling patient: Coding Level of Care Code INT OBSERVATION CARE 70M LVL 3 Diagnoses Atrial fibrillation with rapid ventricular response I48.91 Hypertension I10 Hypercholesterolemia E78.00
[2021-04-17] MEDS ORDERED: METOPROLOL TARTRATE 1 MG/ML VIAL IV PRN (13:32)
--- NOTE | 2021-04-17 13:44 | XCELERA ---
[id number]
[2021-04-17 15:50] VITALS: BP 142/85; PULSE 87; TEMP 97.7; O2SAT 96
[2021-04-17] MEDS ORDERED: METOPROLOL TARTRATE 25 MG TAB PO ONE (17:00)
[2021-04-17] MEDS ORDERED: APIXABAN 5 MG TABLET PO ONE (17:00)
--- NOTE | 2021-04-17 17:33 | Discharge Summary ---
Date of Service April 17, 2021 Admission HPI Per Admitting Provider Raj reports in the past he has had 'minor blip' with rapid heartbeat and irregular pulse. Saw Dr. Maldonado in the past and gave him a heart monitor at the time several years ago, but rhythm spontaneously went back to normal. This episode started last evening 630 and felt his pulse 'weird and irregular.' Did not have palpitations. No sweating, no chest pain, no shortness of breath, no diaphoresis. No fevers, chills, syncope, presyncope. Was anxious about it decided to get evaluated in the morning as he was worrying about. Denies other cardiac hx, no hx of heart attacks. Has seen Dr. Maldonado in the past, would like to be seen by him again if possible. No prior episodes, records reviewed of prior appears has had atrial ectopy without A. fib. [id number] 2. No falls, history of bleeding diathesis. Medical History: Reviewed Medications: Reviewed. Took medicines his AM. Surgical History: Reviewed Allergies: Reviewed. NKDA Social History: No tobacco product product use, rare social alcohol, no recreational drug use Code Status:Full Code Principal Diagnosis Atrial fibrillation with rapid ventricular rate Discharge Exam Constitutional WD/WN, vitals as above Respiratory normal respiratory effort, lungs clear to auscultation Cardiovascular Rate/Rhythm: regular rate and + irregularly irregular Heart Sounds: no murmur Extremities: no pedal edema Gastrointestinal (Abdomen) Percussion/Palpation: abdomen soft; abdomen nontender Psychiatric A+Ox3, euthymic affect Discharge Data Allergies Allergy/AdvReac Type Severity Reaction Status Date / Time No Known Allergies Allergy Mild Verified 04/08/21 10:43 Consultations 04/16/21 11:52 ED Decision to Admit Stat 04/16/21 15:56 Consult Cardiology Routine Hospital Course (1) Atrial fibrillation with rapid ventricular response: Raj Rodriguez is a 70 year old male admitted to [facility] from April 162020 due to irregular pulse. He was diagnosed with atrial fibrillation. This was rate controlled with metoprolol and he was started on Eliquis for stroke risk reduction. Echocardiogram showed a normal left ventri cular systolic function. He will follow up in cardiology clinic. (2) Hypertension: (3) IBS (irritable bowel syndrome): (4) Greater trochanteric bursitis of both hips: (5) Hypokalemia: Total Time Total Time Spent Total Time Spent (In Minutes): 40 Discharge Plan Discharge Items Patient Disposition: Home - Self-Care Reason For Visit: AFIB RVR, NEW Discharge Diagnosis: New onset atrial fibrillation with rapid ventricular rate Activity: Resume your previous activity Non-emergency contact: Manager [employer] Call non-emergency contact if: you have any medication questions and your symptoms worsen Follow-up/Referrals: Anatoly Maldonado MD [Physician] - (please call number to arrange follow up) Kai William MD [Primary Care Provider] - Diet: Heart Healthy Addtl Attending Provider Instructions: You were admitted to [facility] from April 16 - 2020 due to irregular pulse. You were diagnosed with atrial fibrillation. This was rate controlled with metoprolol and you were started on Eliquis for stroke risk reduction. Please call the number above to follow up with cardiology in clinic. Kind regards, Dr Khris Guillermo Pending Studies at Discharge: No Stand-Alone Forms: My [facility], Smoking Cessation Medications and DC Order Prescriptions: New Eliquis 5 mg tablet 5 mg PO BID 30 Days Qty: 60 RF: 0 metoprolol tartrate 25 mg tablet 25 mg PO BID Qty: 60 RF: 0 Continued lisinopril 20 mg tablet 20 mg PO DAILY RF: 0 amlodipine 5 mg tablet 5 mg PO DAILY RF: 0 sertraline 50 mg tablet 50 mg PO HS PRN (Reason: Pain) RF: 0 cholecalciferol (vitamin D3) [Vitamin D3] 10 mcg (400 unit) Tablet 10 mcg PO DAILY RF: 0 kk-0-ehv-epa-fish oil-vit D3 [Fish Oil-Vit D3] 300-1,000-1,000 mg-mg-unit Capsule 1 cap PO DAILY RF: 0 Probiotic 20 billion cell Capsule, Sprinkle 1 cap PO DAILY PRN (Reason: Digestion) RF: 0 udehsvw-wuiu-vprhq-oreg-capryl 100 mg-150 mg- 50 mg-150 mg Capsule 1 cap PO DAILY RF: 0 Discharge Orders: Discharge Order (Routine); Ordered 04/17/21 Ordered By: Khris Guillermo Admission Data Admit Date/Time: 04/16/21 14:12 Attending Provider: Khris Guillermo Admit Provider: Kris Miller Primary Care Provider: Kai William Other Providers: Kris Miller ; Aren Ford Other Interventions: Discharge Summary Assessment (RN) Last Done: 04/17/21 17:33 Coding Level of Care Code D/C DAY MANAGEMENT >30 MINS Diagnoses Atrial fibrillation with rapid ventricular response I48.91 Hypertension I10 IBS (irritable bowel syndrome) K58.9 Greater trochanteric bursitis of both hips M70.61; M70.62 Hypokalemia E87.6
== END 2021-04-17 18:40 | disposition home or self-care (01) | DRG 310 ==
LOC: ED 08:52 → 2S 08:52 → SUATTDRO 14:12 → 2S 15:11